=== PATIENT | female | born 1995 | race Caucasian/White ===

== ENCOUNTER → 2022-06-08 | Outpatient (CLI) | payer OTHER ==
--- NOTE | 2022-06-08 12:52 | Diagnostic Imaging Report ---
EXAMINATION: Lumbar spine radiographs, 5 views. COMPARISON: None. HISTORY: 26-year-old female, low back pain. Sciatica. FINDINGS: There are 5 lumbar-type vertebral bodies. There is no identified pars interarticularis defect. The alignment of lumbar spine is unremarkable. The lumbar disc heights are well preserved. There is no identified compression deformity or fracture. Unremarkable evaluation of the facet joints. The sacral iliac joints are unremarkable in appearance. IMPRESSION: 1. Unremarkable radiographs of the lumbar spine. Dictated by: Dictated on workstation # [id number]
== END ==
LOC: RAD FS 11:24
PROVIDERS: ATTEND Nurse Practitioner
DX: M54.42 Lumbago with sciatica, left side (principal)
CPT/HCPCS: 72110